=== PATIENT | female | born 1995 | race Caucasian/White ===

== ENCOUNTER 2017-08-19 20:05 | Emergency (ER) | payer MEDICAID ==
[~2017-08-19] VITALS: Ht 172.7 cm; Wt 64.8 kg
[~2017-08-19 20:05] MED LIST: BACT800T5 PO; CYCL5TAB PO
[2017-08-19 20:07] VITALS: BP 118/70; PULSE 75; RESP 18; TEMP 97.3; O2SAT 98
[2017-08-19] MEDS ORDERED: NABU1TAB37 PO (20:22)
--- NOTE | 2017-08-19 20:28 | PD ---
HPI . Right ear pain Chief Complaint: ENT Complaint Time Seen by Provider: 20:18 Travel History International Travel<30 days: No Contact w/Intl Traveler<30days: No Traveled to known affect area: No History of Present Illness HPI This patient presents with chief complaint of a right earache. Onset has been a couple days. Pain is exacerbated by laying on her right side. Pain is relieved by Tylenol. She has no associated symptoms such as fever or cold symptoms. She does state that she has poor dentition and is wondering if the pain might be coming from the tooth. PFSH Past Medical History Asthma: No Blood Disorders: No Heart Rhythm Problems: Yes (possible heart murmur per pt) Cancer: No Cardiovascular Problems: No High Cholesterol: No Chemotherapy: No Chest Pain: No Congestive Heart Failure: No COPD: No Diabetes: No Diminished Hearing: No Endocrine: No Genitourinary: Yes (HX UTI) Hepatitis: No Hiatal Hernia: No Immune Disorder: No Kidney Stones: Yes (removed from r kidney) Musculoskeletal: No Neurologic: No Psychiatric: No Reproductive: No Respiratory: No Immunizations Current: Yes Radiation Therapy: No Sleep Apnea: No Thyroid Disease: No Tetanus Vaccination: < 5 Years Influenza Vaccination: Yes ?: Not LMP: NONE : 4 Para: 2 Miscarriage: 2 Past Surgical History Abdominal Surgery: No AICD: No Body Medical Devices: R RENAL STENT Cardiac Surgery: No Ear Surgery: No Endocrine Surgery: No Eye Surgery: No Genitourinary Surgery: Yes (STENT PLACEMENT, r kidney stone removal) Gynecologic Surgery: No Joint Replacement: No Oral Surgery: No Pacemaker: No Thoracic Surgery: No Other Surgery: Yes (ureteral stent) Social History Alcohol Use: No Tobacco Use: No Substance Use: No Allergies-Medications (Allergen,Severity, Reaction): Coded Allergies: nitrofurantoin (Verified Allergy, Severe, Hives, 08/19/17) ibuprofen (Unverified Allergy, Intermediate, GI UPSET, 08/19/17) penicillin G (Unverified Allergy, Intermediate, Hives, 08/19/17) amoxicillin (Unverified Allergy, Unknown, 08/19/17) clavulanic acid (Unverified Allergy, Unknown, 08/19/17) Reported Meds & Prescriptions Reported Meds & Active Scripts Active Nabumetone 500 Mg Tab 500 Mg PO BID Review of Systems Except as stated in HPI: all other systems reviewed are Neg General / Constitutional: No: Fever, Chills HENT: Positive: Dental Difficulties, Earache, No: Ear Discharge Physical Exam Narrative GENERAL: Patient is awake and alert and in no acute distress. SKIN: Warm and dry with no rash or lesions. HEAD: Normocephalic/atraumatic. She does not have any tenderness to palpation of her TMJ but does report that the pain is increased at the TMJ with opening and closing her mouth. EYES: Pupils are equal. Extraocular movements are intact. ENT: TMs are shiny amezcua with good light reflexes bilaterally. No tenderness to percussion of her teeth. The gums are not red or swollen. NECK: Supple with no adenopathy. RESPIRATORY: Nonlabored respirations. MUSCULOSKELETAL: Atraumatic. NEUROLOGICAL: Nonfocal. PSYCHIATRIC: Appropriate mood and affect. Data Data Last Documented VS Vital Signs Date Time Temp Pulse Resp B/P (MAP) Pulse Ox O2 Delivery O2 Flow Rate FiO2 08/19/17 20:07 97.3 75 18 118/70 (86) 98 Orders Orders Ed Discharge Order (08/19/17 20:24) MDM Medical Decision Making Medical Screen Exam Complete: Yes Emergency Medical Condition: Yes Differential Diagnosis Differential diagnosis of ear pain includes eustachian tube dysfunction, otitis externa, otitis media, TMJ syndrome Narrative Course This patient presents with chief complaint of right ear pain. Examination of her TM and EAC is normal. Dental examination is unremarkable. The only abnormality on exam is pain at her right TMJ with opening and closing her mouth. She'll be treated with a nonsteroidal anti-inflammatory agent. Diagnosis Primary Impression: Otalgia, right ear Patient Instructions: General Instructions, Earache (ED) Departure Forms: Tests/Procedures Scripts Nabumetone (Nabumetone) 500 Mg Tab 500 MG PO BID for Pain-Inflammation, #60 TAB 0 Refills Prov: iPly Solis MD 08/19/17 Disposition: 01 DISCHARGE HOME Condition: Stable Pily Solis MD Aug 19, 2017 20:27
== END 2017-08-19 20:29 | disposition home or self-care (01) ==
LOC: PHEFT 20:05
DX: H92.01 Otalgia, right ear (principal); R68.84 Jaw pain; Z86.79 Personal history of other diseases of the circulatory system; Z87.448 Personal history of other diseases of urinary system
CPT/HCPCS: 99283

== ENCOUNTER 2017-12-10 16:36 | Emergency (ER) | payer MEDICAID ==
[~2017-12-10] VITALS: Ht 172.7 cm; Wt 65.0 kg
[~2017-12-10 16:36] MED LIST changes: -BACT800T5 PO; -CYCL5TAB PO; +NABU1TAB37 PO
[2017-12-10 16:39] VITALS: BP 135/68; PULSE 94; RESP 16; TEMP 97.6; O2SAT 99
[2017-12-10] MEDS ORDERED: hydrOXYzine PAMOATE 25 MG CAP PO ONE (17:30)
[2017-12-10 17:53] LABS: AUTOMATED NEUTROPHIL # 4.3 TH/MM3 (1.8-7.7); BASOPHIL # 0.1 TH/MM3 (0-0.2); EOSINOPHIL # 0.3 TH/MM3 (0-0.4); EOSINOPHIL % 3.2 % (0.0-4.0); HEMATOCRIT 37.9 % (35.0-46.0); HEMOGLOBIN 13.4 GM/DL (11.6-15.3); LYMPH % 36.6 % (9.0-44.0); MEAN CELL VOLUME 87.6 FL (80.0-100.0); MEAN CORPUSCULAR HGB CONC 35.4 % (32.0-36.0); MEAN PLATELET VOLUME 7.7 FL (7.0-11.0); MONO % 6.5 % (0.0-8.0); MONOCYTE # 0.5 TH/MM3 (0-0.9); NEUT % 52.7 % (16.0-70.0); PLATELET COUNT 255 TH/MM3 (150-450); RED BLOOD COUNT 4.33 MIL/MM3 (4.00-5.30); RED CELL DISTRIBUTION WIDTH 13.4 % (11.6-17.2); WHITE BLOOD COUNT 8.1 TH/MM3 (4.0-11.0)
[2017-12-10 18:14] LABS: ALBUMIN 4.2 GM/DL (3.4-5.0); ALT (GPT) 12 U/L (9-42); AST (GOT) 11 U/L (16-38); BICARBONATE 29.2 MEQ/L (21.0-32.0); BLOOD UREA NITROGEN 11 MG/DL (7-18); CALCIUM 8.6 MG/DL (8.5-10.1); CHLORIDE 105 MEQ/L (98-107); CREATININE 0.79 MG/DL (0.50-1.00); GLOMERULAR FILTRATION RATE 93 ML/MIN (>89); GLUCOSE,RANDOM 89 MG/DL (74-106); SODIUM (NA) 138 MEQ/L (136-145)
--- NOTE | 2017-12-10 18:15 | PD ---
HPI Chief Complaint: Anxiety Time Seen by Provider: 17:12 Travel History International Travel<30 days: No Contact w/Intl Traveler<30days: No Traveled to known affect area: No History of Present Illness HPI Patient is a 21 year old female who comes in complaining of nausea. She says that she has had issues with anxiety and panic attacks for a long time and was on medication, she thinks Zoloft and Clonopin, but she has not been taking anything for 2 years. She says she has been dealing with the anxiety and panic attacks for the past two years, but they are getting worse. She sights the fact that her boyfriend just opened a tattoo parlor and women are "sending him pictures," as being the reason her anxiety has increased. She has no medical complaints at this time. PFSH Past Medical History Asthma: No Blood Disorders: No Anxiety: Yes ("PANIC ATTACK") Heart Rhythm Problems: Yes (possible heart murmur per pt) Cancer: No Cardiovascular Problems: No High Cholesterol: No Chemotherapy: No Chest Pain: No Congestive Heart Failure: No COPD: No Diabetes: No Diminished Hearing: No Endocrine: No Genitourinary: Yes (HX UTI) Hepatitis: No Hiatal Hernia: No Immune Disorder: No Kidney Stones: Yes (removed from r kidney) Musculoskeletal: No Neurologic: No Psychiatric: No Reproductive: No Respiratory: No Immunizations Current: Yes Radiation Therapy: No Sleep Apnea: No Thyroid Disease: No ?: Not LMP: 11/23/17 : 4 Para: 2 Miscarriage: 2 Past Surgical History Abdominal Surgery: No AICD: No Body Medical Devices: R RENAL STENT Cardiac Surgery: No Ear Surgery: No Endocrine Surgery: No Eye Surgery: No Genitourinary Surgery: Yes (STENT PLACEMENT, r kidney stone removal) Gynecologic Surgery: No Joint Replacement: No Oral Surgery: No Pacemaker: No Thoracic Surgery: No Other Surgery: Yes (ureteral stent) Social History Alcohol Use: No Tobacco Use: No Substance Use: No Allergies-Medications (Allergen,Severity, Reaction): Coded Allergies: nitrofurantoin (Verified Allergy, Severe, Hives, 12/10/17) ibuprofen (Unverified Allergy, Intermediate, GI UPSET, 12/10/17) penicillin G (Unverified Allergy, Intermediate, Hives, 12/10/17) amoxicillin (Unverified Allergy, Unknown, 12/10/17) clavulanic acid (Unverified Allergy, Unknown, 12/10/17) Reported Meds & Prescriptions Reported Meds & Active Scripts Active No Active Prescriptions or Reported Medications Review of Systems Except as stated in HPI: all other systems reviewed are Neg General / Constitutional: No: Fever, Chills Eyes: No: Blurred Vision HENT: No: Headaches, Lightheadedness Cardiovascular: No: Chest Pain or Discomfort Respiratory: No: Shortness of Breath Gastrointestinal: No: Nausea, Vomiting Genitourinary: No: Dysuria Skin: No Rash, No Itching Neurologic: No: Dizziness Psychiatric: Positive: Anxiety Physical Exam Narrative GENERAL: Awake and alert, in no acute distress. SKIN: Focused skin assessment warm/dry. No wounds or signs of infection. HEAD: Atraumatic. Normocephalic. EYES: Pupils equal and round. No scleral icterus. ENT: Mucous membranes pink and moist. NECK: Trachea midline. No JVD. CARDIOVASCULAR: Regular rate and rhythm. No murmur appreciated. RESPIRATORY: No accessory muscle use. Clear to auscultation. Breath sounds equal bilaterally. MUSCULOSKELETAL: No obvious deformities. No clubbing. No cyanosis. No edema. NEUROLOGICAL: Awake and alert. No obvious cranial nerve deficits. Motor grossly within normal limits. Normal speech. PSYCHIATRIC: Appropriate mood and affect; insight and judgment normal. Data Data Last Documented VS Vital Signs Date Time Temp Pulse Resp B/P (MAP) Pulse Ox O2 Delivery O2 Flow Rate FiO2 12/10/17 16:39 97.6 94 16 135/68 (90) 99 Orders Orders Complete Blood Count With Diff (12/10/17 17:20) Comprehensive Metabolic Panel (12/10/17 17:20) Thyroid Stimulating Hormone (12/10/17 17:20) Ed Urine Pregnancytest Poc (12/10/17 17:20) Electrocardiogram (12/10/17 17:20) Psych Screen (12/10/17 17:20) Drug Screen, Random Urine (12/10/17 17:20) Hydroxyzine Pamoate (Vistaril) (12/10/17 17:30) Labs Laboratory Tests Test 12/10/17 17:35 White Blood Count 8.1 TH/MM3 Red Blood Count 4.33 MIL/MM3 Hemoglobin 13.4 GM/DL Hematocrit 37.9 % Mean Corpuscular Volume 87.6 FL Mean Corpuscular Hemoglobin 31.0 PG Mean Corpuscular Hemoglobin Concent 35.4 % Red Cell Distribution Width 13.4 % Platelet Count 255 TH/MM3 Mean Platelet Volume 7.7 FL Neutrophils (%) (Auto) 52.7 % Lymphocytes (%) (Auto) 36.6 % Monocytes (%) (Auto) 6.5 % Eosinophils (%) (Auto) 3.2 % Basophils (%) (Auto) 1.0 % Neutrophils # (Auto) 4.3 TH/MM3 Lymphocytes # (Auto) 3.0 TH/MM3 Monocytes # (Auto) 0.5 TH/MM3 Eosinophils # (Auto) 0.3 TH/MM3 Basophils # (Auto) 0.1 TH/MM3 CBC Comment DIFF FINAL Differential Comment Blood Urea Nitrogen 11 MG/DL Creatinine 0.79 MG/DL Random Glucose 89 MG/DL Total Protein 7.9 GM/DL Albumin 4.2 GM/DL Calcium Level 8.6 MG/DL Alkaline Phosphatase 72 U/L Aspartate Amino Transf (AST/SGOT) 11 U/L Alanine Aminotransferase (ALT/SGPT) 12 U/L Total Bilirubin 0.3 MG/DL Sodium Level 138 MEQ/L Potassium Level 3.6 MEQ/L Chloride Level 105 MEQ/L Carbon Dioxide Level 29.2 MEQ/L Anion Gap 4 MEQ/L Estimat Glomerular Filtration Rate 93 ML/MIN Thyroid Stimulating Hormone 3rd Gen 0.978 uIU/ML Urine Opiates Screen NEG Urine Barbiturates Screen NEG Urine Amphetamines Screen NEG Urine Benzodiazepines Screen NEG Urine Cocaine Screen NEG Urine Cannabinoids Screen POS MDM Medical Decision Making Medical Screen Exam Complete: Yes Emergency Medical Condition: Yes Medical Record Reviewed: Yes Interpretation(s) ECG shows NSR at 74. No ST elevation or depression. Differential Diagnosis Anxiety versus intoxication versus electrolyte abnormality Narrative Course Patient is a 21-year-old female who comes in complaining of anxiety. She would like to see a psychiatrist. Labs and show no acute abnormalities. Patient given a dose of Vistaril. She will be medically cleared for psychiatric evaluation. Patient seen by psych screener and given outpatient resources. Advised to follow up as directed. Given a prescription for Vistaril. Advised to return at any time for any worsening symptoms. Diagnosis Primary Impression: Anxiety Referrals: [facility] Patient Instructions: Anxiety (ED), General Instructions Additional Instructions: Take Vistaril as needed for anxiety. Follow-up at [facility]. Return to the ED as needed for any worsening symptoms. Scripts Hydroxyzine Pamoate (Vistaril) 50 Mg Cap 50 MG PO TID Y for ANXIETY for 7 Days, CAP 0 Refills Prov: Janett Hollingsworth MD 12/10/17 Disposition: 01 DISCHARGE HOME Condition: Stable Janett Hollingsworth MD Dec 10, 2017 18:15
[2017-12-10 18:23] LABS: ALKALINE PHOSPHATASE 72 U/L (45-117); TOTAL BILIRUBIN ADULT 0.3 MG/DL (0.2-1.0); TOTAL PROTEIN 7.9 GM/DL (6.4-8.2)
[2017-12-10] MEDS ORDERED: VIST50CA PO (20:06)
--- NOTE | 2017-12-11 10:41 | EKG ---
Date Performed: 12/10/2017 Time Performed: 17:38:59 PTAGE: 21 years EKG: Sinus rhythm NONSPECIFIC T-WAVE ABNORMALITY BORDERLINE ECG PREVIOUS TRACING : 07/19/2017 12.08 DOCTOR: Jelani Mcguire Interpretating Date/Time 12/11/2017 10:40:20
== END 2017-12-10 20:47 | disposition home or self-care (01) ==
LOC: NEPD 16:36
DX: F41.9 Anxiety disorder, unspecified (principal); F12.90 Cannabis use, unspecified, uncomplicated; R11.0 Nausea; R94.31 Abnormal electrocardiogram [ECG] [EKG]; Z87.440 Personal history of urinary (tract) infections; Z87.442 Personal history of urinary calculi; Z88.0 Allergy status to penicillin; Z88.8 Allergy status to other drugs, medicaments and biological substances
CPT/HCPCS: 80053; 80307; 84443; 84703; 85025; 93005; 99284; Q0177

== ENCOUNTER 2018-03-24 21:15 | Emergency (ER) | payer MEDICAID ==
[~2018-03-24] VITALS: Ht 172.7 cm; Wt 66.7 kg
[~2018-03-24 21:15] MED LIST changes: -NABU1TAB37 PO; +VIST50CA PO
[2018-03-24 21:20] VITALS: BP 109/61; PULSE 82; RESP 18; TEMP 97.6; O2SAT 97
[2018-03-24] MEDS ORDERED: ZOLO100T PO (21:30)
[2018-03-24] MEDS ORDERED: SODIUM CHLOR 0.9% 1000 ML INJ 1,000 ML IV SCH (21:34)
--- NOTE | 2018-03-24 21:39 | PD ---
HPI Chief Complaint: Complaint Time Seen by Provider: 21:28 Travel History International Travel<30 days: No Contact w/Intl Traveler<30days: No Traveled to known affect area: No History of Present Illness HPI Patient is a 22 year old female who comes in complaining of right flank pain with nausea and vomiting. She says she has had "UTI symptoms" for the past month with the pain to her right flank. She says yesterday she started to have some nausea and vomiting. She last vomited 2 hours ago. She has tried Tylenol for her pain without much relief. She says she had a nephrostomy tube on the right in July and is concerned she is having a similar problem again. She denies fever or chills. She says her urine has a foul odor. She denies any vaginal discharge. Severity if mild to moderate. PFSH Past Medical History Asthma: No Blood Disorders: No Anxiety: Yes ("PANIC ATTACK") Heart Rhythm Problems: Yes (possible heart murmur per pt) Cancer: No Cardiovascular Problems: No High Cholesterol: No Chemotherapy: No Chest Pain: No Congestive Heart Failure: No COPD: No Diabetes: No Diminished Hearing: No Endocrine: No Genitourinary: Yes (HX UTI) Hepatitis: No Hiatal Hernia: No Immune Disorder: No Kidney Stones: Yes (removed from r kidney) Musculoskeletal: No Neurologic: No Psychiatric: No Reproductive: No Respiratory: No Immunizations Current: Yes Radiation Therapy: No Sleep Apnea: No Thyroid Disease: No Tetanus Vaccination: > 5 Years Influenza Vaccination: Yes ?: Unknown LMP: 03/16/18 : 4 Para: 2 Miscarriage: 2 Past Surgical History Abdominal Surgery: No AICD: No Body Medical Devices: R RENAL STENT Cardiac Surgery: No Ear Surgery: No Endocrine Surgery: No Eye Surgery: No Genitourinary Surgery: Yes (STENT PLACEMENT, r kidney stone removal) Gynecologic Surgery: No Joint Replacement: No Oral Surgery: No Pacemaker: No Thoracic Surgery: No Other Surgery: Yes (ureteral stent) Social History Alcohol Use: No Tobacco Use: No Substance Use: No Allergies-Medications (Allergen,Severity, Reaction): Coded Allergies: nitrofurantoin (Verified Allergy, Severe, Hives, 03/24/18) ibuprofen (Unverified Allergy, Intermediate, GI UPSET, 03/24/18) penicillin G (Unverified Allergy, Intermediate, Hives, 03/24/18) amoxicillin (Unverified Allergy, Unknown, 03/24/18) clavulanic acid (Unverified Allergy, Unknown, 03/24/18) Reported Meds & Prescriptions Reported Meds & Active Scripts Active Reported Zoloft (Sertraline HCl) 100 Mg Tab 100 Mg PO DAILY Review of Systems Except as stated in HPI: all other systems reviewed are Neg General / Constitutional: No: Fever, Chills HENT: No: Headaches, Lightheadedness Cardiovascular: No: Chest Pain or Discomfort Respiratory: No: Shortness of Breath Gastrointestinal: Positive: Nausea, Vomiting, Abdominal Pain Genitourinary: Positive: Flank Pain Musculoskeletal: No: Myalgias, Edema Skin: No Rash, No Change in Pigmentation Neurologic: No: Weakness, Dizziness Physical Exam Narrative GENERAL: Awake and alert, in no acute distress. SKIN: Focused skin assessment warm/dry. HEAD: Atraumatic. Normocephalic. EYES: Pupils equal and round. No scleral icterus. ENT: Mucous membranes pink and moist. NECK: Trachea midline. No JVD. CARDIOVASCULAR: Regular rate and rhythm. No murmur appreciated. RESPIRATORY: No accessory muscle use. Clear to auscultation. Breath sounds equal bilaterally. GASTROINTESTINAL: Abdomen soft, nondistended. Right CVA tenderness. Mild tenderness to the right side of the abdomen. No rebound or guarding. MUSCULOSKELETAL: No obvious deformities. No clubbing. No cyanosis. No edema. NEUROLOGICAL: Awake and alert. No obvious cranial nerve deficits. Motor grossly within normal limits. Normal speech. PSYCHIATRIC: Appropriate mood and affect; insight and judgment normal. Data Data Last Documented VS Vital Signs Date Time Temp Pulse Resp B/P (MAP) Pulse Ox O2 Delivery O2 Flow Rate FiO2 03/24/18 22:13 64 20 99/46 (63) 98 03/24/18 21:20 97.6 Orders Orders Complete Blood Count With Diff (03/24/18 21:34) Comprehensive Metabolic Panel (03/24/18 21:34) Urinalysis - C+S If Indicated (03/24/18 21:34) Ct Abd/Pel W/O Iv Contrast (03/24/18 21:34) Iv Access Insert/Monitor (03/24/18 21:34) Ecg Monitoring (03/24/18 21:34) Oximetry (03/24/18 21:34) Sodium Chlor 0.9% 1000 Ml Inj (Ns 1000 M (03/24/18 21:34) Sodium Chloride 0.9% Flush (Ns Flush) (03/24/18 21:45) Ed Urine Pregnancytest Poc (03/24/18 21:34) Ondansetron Odt (Zofran Odt) (03/24/18 21:45) Acetaminophen (Tylenol) (03/24/18 21:45) Urine Culture (03/24/18 21:40) Ceftriaxone Inj (Rocephin Inj) (03/24/18 22:30) Labs Laboratory Tests Test 03/24/18 21:40 White Blood Count 9.1 TH/MM3 Red Blood Count 4.47 MIL/MM3 Hemoglobin 13.5 GM/DL Hematocrit 40.0 % Mean Corpuscular Volume 89.4 FL Mean Corpuscular Hemoglobin 30.1 PG Mean Corpuscular Hemoglobin Concent 33.7 % Red Cell Distribution Width 12.6 % Platelet Count 237 TH/MM3 Mean Platelet Volume 8.6 FL Neutrophils (%) (Auto) 52.4 % Lymphocytes (%) (Auto) 33.5 % Monocytes (%) (Auto) 7.4 % Eosinophils (%) (Auto) 4.0 % Basophils (%) (Auto) 2.7 % Neutrophils # (Auto) 4.7 TH/MM3 Lymphocytes # (Auto) 3.1 TH/MM3 Monocytes # (Auto) 0.7 TH/MM3 Eosinophils # (Auto) 0.4 TH/MM3 Basophils # (Auto) 0.2 TH/MM3 CBC Comment DIFF FINAL Differential Comment Urine Color YELLOW Urine Turbidity CLEAR Urine pH 6.0 Urine Specific [place] LESS/EQUAL 1.005 Urine Protein NEG mg/dL Urine Glucose (UA) NEG mg/dL Urine Ketones NEG mg/dL Urine Occult Blood NEG Urine Nitrite NEG Urine Bilirubin NEG Urine Urobilinogen 0.2 MG/DL Urine Leukocyte Esterase MOD Urine RBC 0-3 /hpf Urine WBC INNUM /hpf Urine WBC Clumps MOD Urine Squamous Epithelial Cells 0-5 /hpf Urine Bacteria MOD /hpf Microscopic Urinalysis Comment CULTURE INDICATED Blood Urea Nitrogen 10 MG/DL Creatinine 0.83 MG/DL Random Glucose 98 MG/DL Total Protein 8.2 GM/DL Albumin 4.2 GM/DL Calcium Level 8.8 MG/DL Alkaline Phosphatase 67 U/L Aspartate Amino Transf (AST/SGOT) 15 U/L Alanine Aminotransferase (ALT/SGPT) 19 U/L Total Bilirubin 0.3 MG/DL Sodium Level 140 MEQ/L Potassium Level 3.4 MEQ/L Chloride Level 104 MEQ/L Carbon Dioxide Level 29.1 MEQ/L Anion Gap 7 MEQ/L Estimat Glomerular Filtration Rate 87 ML/MIN MDM Medical Decision Making Medical Screen Exam Complete: Yes Emergency Medical Condition: Yes Medical Record Reviewed: Yes Differential Diagnosis UTI vs renal stone vs pyelonephritis Narrative Course Patient is a 22 year old female who comes in complaining of right flank pain. Exam shows right CVA tenderness and some right sided abdominal tenderness. IV established, labs sent. Labs show no acute abnormalities, Cr is 0.83. CT abd/pelvis performed shows stones within the kidneys, a 3mm stone in the left ureter. Last 24 hours Impressions Abdomen/Pelvis CT 03/24/182133 Signed Impressions: CONCLUSION: 1. 3 mm calculus in proximal left ureter with minimal dilatation of left renal collecting system. No other ureteral or bladder calculi identified. Numerous n onobstructing calculi in both kidneys measuring up to 7 mm in diameter in the l ower pole right kidney. 2. Remainder of exam unremarkable. UA is positive for WBCs, leukocyte esterase. Patient given IVF, Zofran, Tylenol. She reports feeling better. Given a dose of Rocephin. She will be discharged with a prescription for Cipro. Advised to follow up with urology. Advised to return at any time for any worsening symptoms. Referrals: Raf Alvarez MD call for appointment Patient Instructions: General Instructions, Urinary Tract Infection in Women ( ED) Additional Instructions: Follow up with your urologist. Take all of your antibiotic. Drink plenty of fluids. Return to the ED as needed for any worsening symptoms. Scripts Ondansetron Odt (Zofran Odt) 4 Mg Tab 4 MG SL Q6HR Y for Nausea/Vomiting, #12 TAB 0 Refills Prov: Janett Hollingsworth MD 03/24/18 Ciprofloxacin (Cipro) 500 Mg Tab 500 MG PO BID for Infection for 10 Days, #20 TAB 0 Refills Prov: Janett Hollingsworth MD 03/24/18 Disposition: DISCHARGE HOME Condition: Stable Janett Hollingsworth MD Mar 24, 2018:39
[2018-03-24 21:45] LABS: BILIRUBIN, URINE NEG (NEG); BLOOD, URINE NEG (NEG); GLUCOSE,URINE NEG (NEG); KETONE, URINE NEG (NEG); NITRITE,URINE NEG (NEG); URINE COLOR YELLOW (YELLW/STRAW); URINE LEUKOCYTE ESTERASE MOD (NEG)
[2018-03-24] MEDS ORDERED: SODIUM CHLORIDE 0.9% FLUSH 10 ML FLUSH IV FLUSH PRN (21:45)
[2018-03-24] MEDS ORDERED: ACETAMINOPHEN 325 MG TAB PO ONE (21:45)
[2018-03-24] MEDS ORDERED: ONDANSETRON ODT 4 MG TAB PO ONE (21:45)
[2018-03-24 21:47] LABS: AUTOMATED NEUTROPHIL # 4.7 TH/MM3 (1.8-7.7); BASOPHIL # 0.2 TH/MM3 (0-0.2); BASOPHIL % 2.7 % (0.0-2.0); EOSINOPHIL # 0.4 TH/MM3 (0-0.4); HEMOGLOBIN 13.5 GM/DL (11.6-15.3); LYMPH % 33.5 % (9.0-44.0); LYMPHOCYTE # 3.1 TH/MM3 (1.0-4.8); MEAN CELL VOLUME 89.4 FL (80.0-100.0); MEAN CORPUSCULAR HEMOGLOBIN 30.1 PG (27.0-34.0); MEAN CORPUSCULAR HGB CONC 33.7 % (32.0-36.0); MEAN PLATELET VOLUME 8.6 FL (7.0-11.0); MONO % 7.4 % (0.0-8.0); MONOCYTE # 0.7 TH/MM3 (0-0.9); NEUT % 52.4 % (16.0-70.0); PLATELET COUNT 237 TH/MM3 (150-450); RED BLOOD COUNT 4.47 MIL/MM3 (4.00-5.30); RED CELL DISTRIBUTION WIDTH 12.6 % (11.6-17.2); WHITE BLOOD COUNT 9.1 TH/MM3 (4.0-11.0)
[2018-03-24 21:55] VITALS: BP 109/65; PULSE 82; RESP 20; O2SAT 98
[2018-03-24 22:00] LABS: CHLORIDE 104 MEQ/L (98-107); SODIUM (NA) 140 MEQ/L (136-145)
[2018-03-24 22:03] LABS: CALCIUM 8.8 MG/DL (8.5-10.1)
[2018-03-24 22:04] LABS: ALBUMIN 4.2 GM/DL (3.4-5.0); BICARBONATE 29.1 MEQ/L (21.0-32.0); BLOOD UREA NITROGEN 10 MG/DL (7-18); GLUCOSE,RANDOM 98 MG/DL (74-106)
[2018-03-24 22:06] LABS: BACTERIA, URINE MOD /hpf; RBC, URINE 0-3 /hpf (0-3); SQUAMOUS EPITHELIAL CELL URINE 0-5 /hpf (0-5); WBC, URINE INNUM /hpf (0-5); WHITE BLOOD CELL CLUMPS MOD
[2018-03-24 22:07] LABS: ALT (GPT) 19 U/L (10-53); AST (GOT) 15 U/L (15-37); CREATININE 0.83 MG/DL (0.50-1.00); GLOMERULAR FILTRATION RATE 87 ML/MIN (>89)
[2018-03-24 22:09] LABS: TOTAL BILIRUBIN ADULT 0.3 MG/DL (0.2-1.0); TOTAL PROTEIN 8.2 GM/DL (6.4-8.2)
[2018-03-24 22:10] LABS: ALKALINE PHOSPHATASE 67 U/L (45-117)
[2018-03-24 22:13] VITALS: BP 99/46; PULSE 64; RESP 20; O2SAT 98
--- NOTE | 2018-03-24 22:13 | RADRPT ---
EXAM DATE: 03/24/2018 10:01 PM EDT AGE/SEX: 22 years / Female INDICATIONS: Lower abdominal pain for 1 month. CLINICAL DATA: This is the patient's initial encounter. Patient reports that signs and symptoms have been present for 1 month and indicates a pain score of 4/10. MEDICAL/SURGICAL HISTORY: Renal calculi. . Ureteral stent. RADIATION DOSE: 4.83 CTDI (mGy) COMPARISON: No prior exams available for comparison. TECHNIQUE: Multiple contiguous axial images were obtained through the abdomen. Images were obtained using multiple row detector helical technique. Using dose reduction techniques, radiation dose was ke pt as low as reasonably achievable to obtain optimal diagnostic quality images. FINDINGS: There is an approximately 3 mm calculus in the proximal left ureter. There is minimal dilatation of t he left renal collecting system. Lung bases are clear. No acute findings in the liver, spleen, adrenals or pancreas. No free fluid. No bowel obstruction. No adenopathy. There are numerous bilateral renal calculi in upp er and lower poles ranging in size from about 1 mm to 3 mm on the left and 1 mm to 7 mm in short axis diameter on the right at the lower pole. CONCLUSION: 1. 3 mm calculus in proximal left ureter with minimal dilatation of left renal collecting system. No other ureteral or bladder calculi identified. Numerous nonobstructing calculi in both kidneys measur ing up to 7 mm in diameter in the lower pole right kidney. 2. Remainder of exam unremarkable. Electronically signed by: Nadir Zapata MD 03/24/2018 10:11 PM EDT
[2018-03-24] MEDS ORDERED: cefTRIAXone INJ 1,000 MG in SODIUM CHLORIDE 0.9% INJ 100 ML IV ONE (22:30)
[2018-03-24] MEDS ORDERED: ZOFR4TAB3 SL (22:38)
[2018-03-24] MEDS ORDERED: CIPR-9 PO (22:38)
[2018-03-24 23:59] VITALS: BP 105/58
== END 2018-03-25 00:02 | disposition home or self-care (01) ==
LOC: PHED 21:15
DX: N20.1 Calculus of ureter (principal); N39.0 Urinary tract infection, site not specified; B96.20 Unspecified Escherichia coli [E. coli] as the cause of diseases classified elsewhere; F41.9 Anxiety disorder, unspecified; R11.2 Nausea with vomiting, unspecified; R10.9 Unspecified abdominal pain
CPT/HCPCS: 74176; 80053; 81001; 84703; 85025; 87077; 87086; 87186; 96361; 96365; 99284; J0696; J7030